=== PATIENT | male | born 1970 | race Hispanic/Latino ===

== ENCOUNTER 2024-02-21 21:58 | Inpatient (IN) | payer BC ==
[2024-02-21] MEDS ORDERED: NOREPINEPHRINE 8 MG/250 ML-D5W 250 ML ONE (22:19)
[2024-02-21] MEDS ORDERED: Ondansetron PF 4 MG/2 ML Vial IVP PRN (23:54)
[2024-02-22 00:04] LABS: Actual Bicarbonate (HCO3v) 18.4 mEq/L (22-28); Base Excess -5.4 mEq/L (-2.0 to +3.0); Chloride (VBG) 100 mmol/L (98-106); Hematocrit-VBG 38 % (42.0-52.0); Hemoglobin (Hb) 12.9 g/dL (13.1-17.2); Potassium (VBG) 3.37 mmol/L (3.70-5.30); Sodium 130 mmol/L (133-146); pH (venous) 7.396 (7.32-7.43)
[2024-02-22] MEDS ORDERED: Glucagon 1 MG/ML KIT IM PRN (00:09)
[2024-02-22] MEDS ORDERED: Dextrose 5% in Water 1,000 ML IV PRN (00:09)
[2024-02-22] MEDS ORDERED: Dextrose 50% Abboject 50 ML SYRINGE SLOW IVP PRN (00:09)
[2024-02-22 00:17] LABS: Anion Gap 15 mmol/L (10-20); BUN (Urea Nitrogen) 23 mg/dL (8.4-25.7); Calc. Creatinine Clearance 0 mL/min (70-130); Calcium 7.5 mg/dL (7.8-10.44); Carbon Dioxide 18 mmol/L (22-29); Chloride 102 mmol/L (98-107); Estimated GFR 81; Glucose 271 mg/dL (70-105); Potassium 3.4 mmol/L (3.5-5.1); Sodium 132 mmol/L (136-145)
[2024-02-22 00:21] LABS: Troponin I Less than 0.010 ng/mL (< 0.028)
[2024-02-22] MEDS ORDERED: Electrolyte Replacement Protocol 1 EACH FS SCH (00:54)
[2024-02-22] MEDS: Cefepime 2 GM in Sodium Chloride 0.9% 100 ML IVPB SCH ×2 (00:57→22:33)
[2024-02-22] MEDS: Hydrocortisone Sod Succ/PF 100 mg/2 ml Vial IVP SCH (00:57)
[2024-02-22] MEDS: Vancomycin (BATCH) 1.5 GM in Premix 1 BAG IVPB SCH (00:58)
[2024-02-22] MEDS: Lactated Ringer's 1,000 ML IV SCH (00:58)
[2024-02-22] MEDS: Potassium Chloride 20 MEQ TAB PO SCH (01:00)
[2024-02-22] MEDS: HumaLOG 300 UNITS/3 ML VIAL SC PRN ×2 (06:35→22:28)
[2024-02-22 07:36] VITALS: BMI 21.0
[2024-02-22 08:20] LABS: ALT (SGPT) 49 U/L (8-55); AST (SGOT) 62 U/L (5-34); Albumin 2.1 g/dL (3.5-5.0); Alkaline Phosphatase 105 U/L (40-110); Anion Gap 16 mmol/L (10-20); BUN (Urea Nitrogen) 24 mg/dL (8.4-25.7); Calc. Creatinine Clearance 81 mL/min (70-130); Calcium 7.6 mg/dL (7.8-10.44); Carbon Dioxide 19 mmol/L (22-29); Chloride 101 mmol/L (98-107); Estimated GFR 86; Glucose 276 mg/dL (70-105); Potassium 3.5 mmol/L (3.5-5.1); Protein, Total 5.1 g/dL (6.0-8.3); Sodium 132 mmol/L (136-145)
[2024-02-22] MEDS ORDERED: Iopamidol 370 76% 100 ML VIAL ONE (08:45)
[2024-02-22 08:55] LABS: Hematocrit 35.7 % (42.0-52.0); Hemoglobin 12.3 g/dL (14.0-18.0); Mean Corpuscular HGB CONC 34.5 g/dL (32.0-36.0); Mean Corpuscular Hemoglobin 29.9 pg (27.0-31.0); Mean Corpuscular Volume 86.9 fL (78.0-98.0); Mean Platelet Volume 13.9 fL (7.4-10.4); Platelet Count 48 10x3/uL (130-400); RBC Distribution Width 12.4 % (11.5-14.5); Red Blood Cell (RBC) Count 4.11 mill/uL (4.70-6.10)
[2024-02-22] MEDS ORDERED: Enoxaparin 40 MG (0.4 mL) SYRINGE SC SCH (09:00)
[2024-02-22 09:30] LABS: Anisocytosis SLIGHT = 6-15 cells HPF (0-5); Band 39 % (5-11); Large Platelets 6.9 % (0-5); Lymphocytes 2 % (21-51); Monocytes 3 % (0-10); Neutrophil 56 % (42-75); Platelet Adequacy Comment Platelets Decreased; Poikilocytosis SLIGHT = 6-15 cells HPF (0-5)
[2024-02-22] MEDS: Pantoprazole DR 40 MG TAB PO SCH (09:42)
[2024-02-22 11:17] LABS: INR-International Normal Ratio 1.2; PTT 44.3 sec (22.9-36.1); Prothrombin Time 14.8 sec (12.0-14.7)
[2024-02-22] MEDS ORDERED: Cefepime 2 GM in Sodium Chloride 0.9% 100 ML IVPB SCH (12:00)
[2024-02-22 12:30] LABS: Lactic Acid 1.7 mmol/L (0.5-2.2)
[2024-02-22 13:27] VITALS: BMI 21.0
[2024-02-22] MEDS: Acetaminophen 325 MG TAB PO PRN (16:49)
[2024-02-23 06:15] LABS: Hematocrit 32.7 % (42.0-52.0); Hemoglobin 11.8 g/dL (14.0-18.0); Mean Corpuscular HGB CONC 36.1 g/dL (32.0-36.0); Mean Corpuscular Hemoglobin 30.2 pg (27.0-31.0); Mean Corpuscular Volume 83.6 fL (78.0-98.0); Mean Platelet Volume 14.3 fL (7.4-10.4); Platelet Count 53 10x3/uL (130-400); RBC Distribution Width 12.7 % (11.5-14.5); Red Blood Cell (RBC) Count 3.91 mill/uL (4.70-6.10)
[2024-02-23 06:16] LABS: Globulin 2.7 g/dL (2.4-3.5)
[2024-02-23 06:20] LABS: ALT (SGPT) 37 U/L (8-55); AST (SGOT) 43 U/L (5-34); Albumin 1.9 g/dL (3.5-5.0); Alkaline Phosphatase 107 U/L (40-110); Anion Gap 15 mmol/L (10-20); BUN (Urea Nitrogen) 26 mg/dL (8.4-25.7); Bilirubin, Total 0.9 mg/dL (0.2-1.2); Calc. Creatinine Clearance 89 mL/min (70-130); Calcium 7.6 mg/dL (7.8-10.44); Carbon Dioxide 19 mmol/L (22-29); Chloride 100 mmol/L (98-107); Estimated GFR 98; Glucose 228 mg/dL (70-105); Potassium 3.1 mmol/L (3.5-5.1); Protein, Total 4.6 g/dL (6.0-8.3); Sodium 131 mmol/L (136-145)
[2024-02-23 06:42] LABS: Band 18 % (5-11); Burr Cells SLIGHT = 2-5 cells HPF (0-1); Large Platelets 2.9 % (0-5); Monocytes 1 % (0-10); Neutrophil 81 % (42-75); Platelet Adequacy Comment Platelets Decreased; Smudge Cells 27.5 %; Toxic Granulation SLIGHT
[2024-02-23] MEDS: Potassium Chloride 20 MEQ TAB PO SCH (08:49)
[2024-02-24 06:24] LABS: Hematocrit 33.6 % (42.0-52.0); Hemoglobin 11.8 g/dL (14.0-18.0); Mean Corpuscular HGB CONC 35.1 g/dL (32.0-36.0); Mean Corpuscular Hemoglobin 29.6 pg (27.0-31.0); Mean Corpuscular Volume 84.2 fL (78.0-98.0); Mean Platelet Volume 13.7 fL (7.4-10.4); Platelet Count 67 10x3/uL (130-400); Red Blood Cell (RBC) Count 3.99 mill/uL (4.70-6.10)
[2024-02-24 06:36] LABS: Globulin 2.9 g/dL (2.4-3.5)
[2024-02-24 06:41] LABS: ALT (SGPT) 47 U/L (8-55); AST (SGOT) 77 U/L (5-34); Albumin 1.8 g/dL (3.5-5.0); Alkaline Phosphatase 88 U/L (40-110); Anion Gap 15 mmol/L (10-20); BUN (Urea Nitrogen) 23 mg/dL (8.4-25.7); CK (CPK) 12 U/L (30-200); Calc. Creatinine Clearance 102 mL/min (70-130); Calcium 7.8 mg/dL (7.8-10.44); Carbon Dioxide 21 mmol/L (22-29); Chloride 103 mmol/L (98-107); Estimated GFR 105; Glucose 242 mg/dL (70-105); Potassium 3.6 mmol/L (3.5-5.1); Protein, Total 4.7 g/dL (6.0-8.3); Sodium 135 mmol/L (136-145)
[2024-02-24 06:57] LABS: Band 4 % (5-11); Burr Cells SLIGHT = 2-5 cells HPF (0-1); Large Platelets 2.9 % (0-5); Lymphocytes 1 % (21-51); Monocytes 1 % (0-10); Neutrophil 91 % (42-75); Platelet Adequacy Comment Platelets Decreased; RBC Morphology Within Normal Limits; Smudge Cells 15.5 %
[2024-02-24 06:59] LABS: HIV (1/2) Antibody/Antigen NONREACTIVE (NonReactive); HIV 1/2 INDEX 0.06 S/CO (<1.00); Thyroid Stimulating Hormone 0.6836 uIU/mL (0.35-4.94)
[2024-02-24 11:17] LABS: Influenza A by NAA Not Detected (NotDetected); Influenza B by NAA Not Detected (NotDetected); RSV by NAA Not Detected (NotDetected); SARS-CoV-2 NAA Rapid Test Not Detected (NotDetected)
[2024-02-24] MEDS ORDERED: Electrolyte Replacement Protocol FS PRN (11:30)
[2024-02-24 14:35] LABS: Bilirubin Negative (Negative); Blood, Urine Large (Negative); Glucose, Urine (Dipstick) >=1000 mg/dL (Negative); Ketone, Urine 15 mg/dL (Negative); Leukocyte Negative (Negative); Nitrite Negative (Negative); Protein, Urine (Dipstick) 30 mg/dL (Neg-Trace); Urobilinogen 0.2 mg/dL (Less than 2)
[2024-02-24 14:45] LABS: Bacteria/HPF None Seen HPF (None Seen); CAUTI Indications for Culture Fever or rigors; Squamous Epithelial 0-3 HPF (0-3); WBC/HPF 0-3 HPF (0-3)
[2024-02-24 14:46] LABS: Clarity Hazy (Clear)
[2024-02-24 14:47] LABS: Urine Culture Reflex No No
[2024-02-24] MEDS: Ibuprofen 100 MG/5 ML UDCUP PO SCH (21:07)
[2024-02-25] MEDS: LevoFLOXacin 750 MG TAB PO SCH (05:39)
[2024-02-25 05:57] LABS: Hematocrit 32.7 % (42.0-52.0); Hemoglobin 11.3 g/dL (14.0-18.0); Mean Corpuscular HGB CONC 34.6 g/dL (32.0-36.0); Mean Corpuscular Hemoglobin 29.5 pg (27.0-31.0); Mean Corpuscular Volume 85.4 fL (78.0-98.0); Mean Platelet Volume 12.6 fL (7.4-10.4); Platelet Count 86 10x3/uL (130-400); RBC Distribution Width 13.2 % (11.5-14.5); Red Blood Cell (RBC) Count 3.83 mill/uL (4.70-6.10)
[2024-02-25 06:12] LABS: Anion Gap 11 mmol/L (10-20); BUN (Urea Nitrogen) 23 mg/dL (8.4-25.7); Calc. Creatinine Clearance 102 mL/min (70-130); Calcium 8.1 mg/dL (7.8-10.44); Carbon Dioxide 24 mmol/L (22-29); Chloride 104 mmol/L (98-107); Estimated GFR 103; Glucose 253 mg/dL (70-105); Potassium 3.2 mmol/L (3.5-5.1); Sodium 136 mmol/L (136-145)
[2024-02-25 06:19] LABS: Band 9 % (5-11); Eosinophils 2 % (0-10); Hypochromia SLIGHT = 6-15 cells HPF (0-5); Monocytes 2 % (0-10); Neutrophil 87 % (42-75); Platelet Adequacy Comment Platelets Decreased; Poikilocytosis SLIGHT = 6-15 cells HPF (0-5); Polychromasia SLIGHT = 2-3 cells HPF (0-2)
[2024-02-25] MEDS: Potassium Chloride 20 MEQ TAB PO SCH (08:42)
[2024-02-25] MEDS: glyBURIDE 5 MG TAB PO SCH ×2 (11:41→16:57)
[2024-02-25 13:34] LABS: Potassium 3.8 mmol/L (3.5-5.1)
[2024-02-26 04:13] LABS: Hemoglobin 10.4 g/dL (14.0-18.0); Mean Corpuscular HGB CONC 34.7 g/dL (32.0-36.0); Mean Corpuscular Hemoglobin 30.1 pg (27.0-31.0); Mean Corpuscular Volume 86.7 fL (78.0-98.0); Platelet Count 112 10x3/uL (130-400); RBC Distribution Width 13.2 % (11.5-14.5); Red Blood Cell (RBC) Count 3.46 mill/uL (4.70-6.10)
[2024-02-26 04:31] LABS: Anion Gap 11 mmol/L (10-20); BUN (Urea Nitrogen) 20 mg/dL (8.4-25.7); Calc. Creatinine Clearance 104 mL/min (70-130); Calcium 7.7 mg/dL (7.8-10.44); Carbon Dioxide 25 mmol/L (22-29); Chloride 102 mmol/L (98-107); Estimated GFR 104; Glucose 221 mg/dL (70-105); Potassium 3.5 mmol/L (3.5-5.1); Sodium 134 mmol/L (136-145)
[2024-02-26 05:08] LABS: Band 4 % (5-11); Eosinophils 1 % (0-10); Lymphocytes 3 % (21-51); Monocytes 1 % (0-10); Neutrophil 90 % (42-75); Ovalocytes SLIGHT = 2-5 cells HPF (0-1); Platelet Adequacy Comment Platelets Decreased; Toxic Granulation SLIGHT; Vacuoles SLIGHT
[2024-02-26] MEDS: Sodium Chloride 0.9% 500 ML IV SCH (05:19)
[2024-02-26] MEDS: Potassium Chloride 20 MEQ TAB PO SCH (08:18)
[2024-02-26] MEDS: Artificial Tear Sol 15 ML BOT EA EYE PRN (21:09)
[2024-02-27 05:23] LABS: Hematocrit 31.7 % (42.0-52.0); Hemoglobin 10.7 g/dL (14.0-18.0); Mean Corpuscular HGB CONC 33.8 g/dL (32.0-36.0); Mean Corpuscular Hemoglobin 28.8 pg (27.0-31.0); Mean Corpuscular Volume 85.4 fL (78.0-98.0); Mean Platelet Volume 11.5 fL (7.4-10.4); Platelet Count 140 10x3/uL (130-400); RBC Distribution Width 13.2 % (11.5-14.5); Red Blood Cell (RBC) Count 3.71 mill/uL (4.70-6.10)
[2024-02-27 05:41] LABS: ALT (SGPT) 29 U/L (8-55); AST (SGOT) 26 U/L (5-34); Albumin 1.9 g/dL (3.5-5.0); Alkaline Phosphatase 72 U/L (40-110); Anion Gap 12 mmol/L (10-20); BUN (Urea Nitrogen) 18 mg/dL (8.4-25.7); Bilirubin, Total 0.7 mg/dL (0.2-1.2); Calc. Creatinine Clearance 96 mL/min (70-130); Calcium 7.7 mg/dL (7.8-10.44); Carbon Dioxide 26 mmol/L (22-29); Chloride 103 mmol/L (98-107); Estimated GFR 96; Globulin 3.1 g/dL (2.4-3.5); Glucose 214 mg/dL (70-105); Potassium 3.8 mmol/L (3.5-5.1); Sodium 137 mmol/L (136-145)
[2024-02-27 05:46] LABS: Band 11 % (5-11); Eosinophils 1 % (0-10); Hypochromia SLIGHT = 6-15 cells HPF (0-5); Lymphocytes 2 % (21-51); Monocytes 4 % (0-10); Neutrophil 80 % (42-75); Platelet Adequacy Comment Platelets Normal; Reactive Lymphocytes 1 % (0-10)
[2024-02-27 07:35] VITALS: BP 134/88; TEMP 99
[2024-02-28 22:36] LABS: Mycoplasma pneumoniae IgG AB 240 U/mL (0-99); Mycoplasma pneumoniae IgM AB Less than 770 U/mL (0-769)
== END 2024-02-27 11:48 | disposition home or self-care (01) | DRG 871 ==
LOC: ERS 21:58 → CCU 23:39 → MSONC 02-22 11:42
PROVIDERS: ADMIT Internal Medicine; ATTEND Internal Medicine
PROC: 02HV33Z Insertion of Infusion Device into Superior Vena Cava, Percutaneous Approach (ICD-10-PCS; principal; 2024-02-21)
PROC: 3E033XZ Introduction of Vasopressor into Peripheral Vein, Percutaneous Approach (ICD-10-PCS; 2024-02-21)
DX: A41.9 Sepsis, unspecified organism (principal); R65.21 Severe sepsis with septic shock; E87.1 Hypo-osmolality and hyponatremia; N17.9 Acute kidney failure, unspecified; E87.20 Acidosis, unspecified; K21.9 Gastro-esophageal reflux disease without esophagitis; E78.5 Hyperlipidemia, unspecified; R23.3 Spontaneous ecchymoses; E87.6 Hypokalemia; E11.65 Type 2 diabetes mellitus with hyperglycemia; D69.59 Other secondary thrombocytopenia; E11.22 Type 2 diabetes mellitus with diabetic chronic kidney disease; N18.9 Chronic kidney disease, unspecified; Z79.899 Other long term (current) drug therapy; Z79.84 Long term (current) use of oral hypoglycemic drugs
CPT/HCPCS: 0241U; 36415; 36416; 36556; 71045; 71046; 74177; 80048; 80053; 81001; 82533; 82550; 82805; 83605; 84145; 84443; 84484; 85025; 85610; 85730; 86141; 86480; 87040; 87071; 87389; 87798; 93005; 93970; 96365; 96366; 96368; J0692; J1720; J1815; J3370; J3490; J7120; Q9967